=== PATIENT | male | born 1970 ===

== ENCOUNTER 2020-06-15 07:26 | Day surgery (SDC) | payer BC ==
[~2020-06-15] VITALS: Ht 175.3 cm; Wt 82.4 kg
[2020-06-15] MEDS ORDERED: KLONOPIN 1MG1 MG PO (08:14)
[2020-06-15] MEDS ORDERED: CIALIS5 MG PO (08:15)
[2020-06-15] MEDS ORDERED: FLEXERIL 1010 MG/TAB PO (08:15)
[2020-06-15] MEDS ORDERED: TRENTAL 400MG400 MG PO (08:16)
[2020-06-15] MEDS ORDERED: THE MEDICINE S200 M2 PO (08:17)
[2020-06-15] MEDS ORDERED: L-CARNITINE500 M1 PO (08:17)
[2020-06-15] MEDS ORDERED: VITAMIN E1000 U/CAP PO (08:18)
[2020-06-15 08:47] VITALS: BP 134/90; PULSE 78; TEMP 97.4
[2020-06-15 09:15] VITALS: BP 81/67; PULSE 85
--- NOTE | 2020-06-15 09:15 | NUR ---
PT TO [facility]AY 6 VIA CART FROM ENDO [facility], WALKED TO CHAIR, GAIT STABLE. IN ROOM. CALL LIGHT IN REACH, PT TAKES DRINK AND SNACK
[2020-06-15 09:30] VITALS: BP 100/70; PULSE 16
[2020-06-15 09:45] VITALS: BP 113/82; PULSE 69
--- NOTE | 2020-06-15 09:45 | NUR ---
DR CURTIS SEE PT. INT DC'D INTACT. PT UP IN ROOM DRESSED, REVIEWED DISCHARGE INST. WITH PT ON MODERATE SEDATION, PRECAUTIONS AND FOLLOWUP WITH VERBAL UNDERSTANDING. PT DISCHARGED VIA W/C TO CAR AT 0950
== END 2020-06-15 09:50 ==
LOC: SDCO 07:26
DX: Z12.11 Encounter for screening for malignant neoplasm of colon (principal); Z87.891 Personal history of nicotine dependence; G89.29 Other chronic pain
CPT/HCPCS: J2704; J7030